=== PATIENT | male | born 1960 | race Caucasian/White ===

== ENCOUNTER 2019-01-17 20:53 | Inpatient (IN) | payer OTHER ==
[~2019-01-17] VITALS: Ht 175.3 cm; Wt 79.8 kg
[2019-01-17 21:25] LABS: BASOPHIL % 0.5 % (0-2); PLATELET COUNT 172 x10^3mcL (130-400); RED CELL DISTRIBUTION WIDTH 13.3 % (11.5-14.5)
[2019-01-17 21:32] LABS: CALCIUM 8.5 mg/dL (8.5-10.1); CARBON DIOXIDE 31.7 mmol/L (21-32); CHLORIDE SERUM 106 mmol/L (98-107); GFR1 > 60 mL/min; GLUCOSE SERUM 93 mg/dL (74-106); POTASSIUM SERUM 4.1 mmol/L (3.5-5.1); SODIUM SERUM 145 mmol/L (136-145)
[2019-01-17 21:37] LABS: ALBUMIN 3.7 g/dL (3.4-5.0); ALKALINE PHOSPHATASE 51 U/L (46-116); ALT/SGPT 19 U/L (16-63); AST/SGOT 21 U/L (15-37); BILIRUBIN TOTAL 0.3 mg/dL (0.20-1.00); TOTAL PROTEIN, SERUM 6.9 g/dL (6.4-8.2)
--- NOTE | 2019-01-17 22:20 | NUR ---
MD JOHNSON MADE AWARE OF PT WHEEZING. NEW ORDERS IN PLACE SEE EMAR
--- NOTE | 2019-01-17 22:26 | NUR ---
PT PRESENTS TO ED [facility] FOR C/O CHEST PAIN/NAUSEA/ SOB/ GEN WEAKNESS X 2 WEEKS. PT HAS EXTENSIVE CARDIAC HISTORY. PT STATES FOR PAST 2 WEEKS HE HAS BEEN FELLING INCREASINGLY MORE WEAK AND SOB LIKE HE JUST CANT GET THE ENERGY HE USED TO. PER PT HE STARTED TO HAVE INTERMITTENT CHEST PAIN ON THURSDAY THAT SUBSIDED YESTERDAY AND STARTED AGAIN TODAY. PT DESCRIBES THE PAIN SHARP SUBSTERNAL PAIN THAT RADIATES TO R SHOULDER AND UP HIS NECK. PT STATES THAT HIS SOB IS WORSE WITH WALKING AND THAT HE SMOKES A PACK OF CIGARETTES PER DAY. PT HAS EXPIRATORY WHEEZING IN FRONT AND BACK IN ALL LUNG MARINELLI. PT ALSO HAS CHRONIC BACK AND NERVE PAIN. PT SPEAKING IN CLEAR AND FULL SENTENCES. SKIN WNL NO DIAPHORESIS NOTED AT THIS TIME. PT AXO X4. AT BEDSIDE. MD JOHNSON AWARE OF PT COMPLAINTS AND HX. PT CONNECTED TO FULL CM AND PULSE OX MONITORS AT THIS TIME. LAB RESULTS AND X RAY RESULTS ARE ALREADY BACK. AWARE. NEW ORDERS IN PLACE. CALL LIGHT IN PLACE. AT BEDSIDE
--- NOTE | 2019-01-17 22:31 | NUR ---
RT AT BEDSIDE FOR PT BREATHING TX
[2019-01-17] MEDS ORDERED: NITROSTAT0.4 MG SL (23:07)
[2019-01-17] MEDS ORDERED: LOSARTAN POTAS100 M1 PO (23:07)
[2019-01-17] MEDS ORDERED: LIPI20 PO (23:08)
[2019-01-17] MEDS ORDERED: FELODIPINE10 MG PO (23:08)
[2019-01-17] MEDS ORDERED: PANTOPRAZOLE SO40 M1 PO (23:09)
[2019-01-17] MEDS ORDERED: GOOD SENSE ASPI81 M3 PO (23:09)
[2019-01-17] MEDS ORDERED: IBUPROFEN400 MG PO (23:09)
[2019-01-17] MEDS ORDERED: PERCOCET1 TA5 PO (23:10)
[2019-01-17] MEDS ORDERED: AEROECLIPSE II1 EACH MC (23:10)
[2019-01-17] MEDS ORDERED: XANAX0.5 MG PO (23:10)
--- NOTE | 2019-01-18 00:57 | NUR ---
REPORT GIVEN TO TRACY HARRIS TO RESUME CARE OF PT
[2019-01-18 01:07] LABS: CHOLESTEROL/HDL RATIO 3.2; MAGNESIUM 1.8 mg/dL (1.8-2.4)
--- NOTE | 2019-01-18 01:10 | NUR ---
RECEIVED PT FROM ED VIA [facility], CAME IN DUE TO CHEST PAIN. AAOX4. DENIES HEADACHE/DIZZINESS. SPEECH IS CLEAR. ABLE TO FOLLOW COMMANDS. NO SOB NOTED, LUNG SOUNDS CTA, O2 TVM=248%. STATED THAT HE HAS 2/10 MID CHEST PAIN, SR ON THE MONITOR. C/O NAUSEA. DENIES ABDOMINAL PAIN. BOWEL SOUNDS ACTIVE. VOIDS. IV SITE PATENT AND INTACT. SIDE RAILS UPX2. CALL LIGHT ON REACH. PT'S SISTER AT BEDSIDE. ENDORSED TO PRIMARY NURSE TRACY FOR CONTINUITY OF CARE
--- NOTE | 2019-01-18 01:15 | NUR ---
PT RECEIVED A/O X4, ABLE TO MAKE NEEDS KNOWN. TELE #15, REPORTS 2/10 CP, PT STATES PAIN IS TOLERABLE. PULSES PALPABLE, NO EDEMA PRESENT. BREATHING IS EVEN AND UNLABORED, NO RESP DISTRESS NOTED. ABD SOFT AND NONDISTENDED, DENIES N/V. VOIDS FREELY, BRP. AMBULATORY WITH STEADY GAIT. SKIN IS WARM AND DRY, INTACT. IV TO RAC, PATENT AND INTACT, SITE WNL. NO ACUTE DISTRESS NOTED. SISTER AT BEDSIDE. ORIENTED PT TO ROOM AND CALL LIGHT. BED IN LOWEST SETTING, SIDE RAILS UP X2, CALL LIGHT WITHIN REACH. WILL CONT TO MONITOR.
[2019-01-18 01:19] VITALS: BP 121/80
[2019-01-18 01:25] VITALS: Ht 175.3 cm; Wt 79.8 kg
--- NOTE | 2019-01-18 01:40 | NUR ---
PER [employer] MECHANIC, PT'S HR-NSR WITH SHORT PAUSES, PT DENIES CP/PRESSURE AT THIS TIME. NO ACUTE DISTRESS NOTED. DR AMIN MADE AWARE. WILL CONT TO MONITOR.
--- NOTE | 2019-01-18 03:05 | NUR ---
PT C/O INSOMNIA, DR AMIN MADE AWARE. ONE TIME ORDER OF AMBIEN PO GIVEN PER EMAR. NO ACUTE DISTRESS NOTED. WILL CONT TO MONITOR.
--- NOTE | 2019-01-18 03:46 | NUR ---
PT C/O 8/10 BACK PAIN AND RASHI LEG PAIN. DR GARIBAYED AT BEDSIDE DISCUSSING PAIN MANAGEMENT OPTIONS. ONE TIME DOSE OF MORPHINE IVP GIVEN ORDERED. NO ACUTE DISTRESS NOTED. CALL LIGHT WITHIN REACH. WILL CONT TO MONITOR.
[2019-01-18 06:00] VITALS: BP 113/67
--- NOTE | 2019-01-18 07:20 | NUR ---
SEEN RESTING WITH EYES CLOSED. BREATHING E/U ON ROOM AIR. IVF NS AT 10ML/HR TO RAC INFUSING WELL. CALL LIGHT NOTED WITHIN EASY REACH. SIDERAILS UP X2.
--- NOTE | 2019-01-18 07:26 | NUR ---
PT SLEPT AT INTERVALS THROUGHOUT THE EVENING. BREATHING IS EVEN AND UNLABORED, NO RESP DISTRESS NOTED. PT DENIES HAVING ANY PAIN AT THIS TIME. NO ACUTE CHANGES ENCOUNTERED DURING SHIFT. ALL NEEDS MET AND ANTICIPATED. PT COMPLIANT WITH NURSING CARE. IV TO RAC, PATENT AND INTACT, SITE WNL. CALL LIGHT WITHIN REACH. CONT OF CARE ENDORSED TO ANTONIO HARRIS.
[2019-01-18 08:49] VITALS: BP 110/79
--- NOTE | 2019-01-18 09:10 | NUR ---
SCHEDULED AM MEDS GIVEN. STATED BACK PAIN IS 4/10 ON PAIN SCALE, PERCOCET 1 TAB PO GIVEN, WILL CONTINUE TO MONITOR.
--- NOTE | 2019-01-18 10:06 | NUR ---
STATED BACK PAIN IS RELIEF AFTER PERCOCET GIVEN.
--- NOTE | 2019-01-18 11:05 | NUR ---
DOCTOR [place] AND MEDICAL TEAM AT BEDSIDE FOR AM ROUND. PATIENT MADE AWARE PLAN OF CARE.
[2019-01-18 12:44] VITALS: BP 119/67
--- NOTE | 2019-01-18 14:25 | NUR ---
RESTING IN BED TALKING TO HIS SISTER. NO ANY DISTRESS NOTED. DENIES CHEST PAIN.
[2019-01-18 16:52] VITALS: BP 119/67
[2019-01-18] MEDS ORDERED: NOR10 PO (16:59)
[2019-01-18] MEDS ORDERED: ZITHROMAX500 MG PO (17:00)
--- NOTE | 2019-01-18 17:33 | NUR ---
DISCHARGE INSTRUCTION/PRESCRIPTION GIVEN TO PATIENT WHO IS AWAKE, ALERT, ORIENTED X4. S/L TO RAC REMOVED WITH CATHETER INTACT, NO ERYTHEMA OR SWELLING TO SITE, DRSG APPLIED. TELEMETRY REMOVED AND WILL RETURN TO MT. DENIES CHEST PAIN AT THIS TIME. REFUSED WHEELCHAIR. ACCOMPANIED BY ESEQUIEL CULVER AND PATIENT'S SISTER TO LOBBY.
--- NOTE | 2019-01-19 07:52 | NUR ---
CANCELLATION REQUESTED FOR ECHOCARDIOGRAM
== END 2019-01-18 17:34 | disposition home or self-care (01) | DRG 206 ==
LOC: ED 20:53 → DU 01-18 00:21
PROVIDERS: ADMIT Internal Medicine
DX: M94.0 Chondrocostal junction syndrome [Tietze] (principal); J90 Pleural effusion, not elsewhere classified; J44.1 Chronic obstructive pulmonary disease with (acute) exacerbation; F41.9 Anxiety disorder, unspecified; I25.10 Atherosclerotic heart disease of native coronary artery without angina pectoris; I10 Essential (primary) hypertension; G89.29 Other chronic pain; E78.5 Hyperlipidemia, unspecified; M54.9 Dorsalgia, unspecified; I25.2 Old myocardial infarction; Z68.26 Body mass index [BMI] 26.0-26.9, adult; Z95.1 Presence of aortocoronary bypass graft; Z87.891 Personal history of nicotine dependence; Z95.5 Presence of coronary angioplasty implant and graft
CPT/HCPCS: 83880; G0378; J2270; J2405; J2930; J3010; J7030